=== PATIENT | male | born 1965 | race Caucasian/White ===

== ENCOUNTER 2018-03-01 04:12 | Emergency (ER) | payer MEDICAID ==
[~2018-03-01] VITALS: Ht 172.7 cm; Wt 108.0 kg
--- NOTE | 2018-03-01 04:30 | NUR ---
Patient to ER bed 8 to gown for evaluation. Side rails up.
[2018-03-01 04:35] VITALS: BP_SYST 136
--- NOTE | 2018-03-01 04:35 | NUR ---
Pt complains of right leg swelling since Saturday night. Per pt, he might have gotten a bug bite but is unsure. Noted erythema and edema, tender to touch. Pt denies fever, N/V. No other injuries/complaints per patient or noted.
--- NOTE | 2018-03-01 04:39 | NUR ---
ER Dr. Calhoun at bedside examining patient.
[2018-03-01] MEDS ORDERED: SULFAMETHOXAZOLE/TRIMETHOPR DS 1 TABLET PO ONE (04:45)
[2018-03-01 05:00] VITALS: BP_SYST 136
--- NOTE | 2018-03-01 05:00 | NUR ---
Patient given written and verbal discharge instructions and verbalizes understanding. ER MD discussed with patient the results and treatment provided. Patient in stable condition. ID arm band removed. Rx of Motrin and Bactrim given. Patient educated on pain management and to follow up with PMD. Pain Scale 0 Opportunity for questions provided and answered. Medication side effect fact sheet provided.
== END 2018-03-01 05:00 | disposition home or self-care (01) ==
LOC: SED 04:12
DX: S80.861A Insect bite (nonvenomous), right lower leg, initial encounter (principal); L03.115 Cellulitis of right lower limb; R03.0 Elevated blood-pressure reading, without diagnosis of hypertension; W57.XXXA Bitten or stung by nonvenomous insect and other nonvenomous arthropods, initial encounter; Y93.89 Activity, other specified; Y92.89 Other specified places as the place of occurrence of the external cause; Y99.8 Other external cause status
CPT/HCPCS: 99282

== ENCOUNTER 2020-02-16 06:24 | Emergency (ER) | payer MEDICAID, OTHER ==
[~2020-02-16] VITALS: Ht 172.7 cm; Wt 104.3 kg
[2020-02-16 06:35] VITALS: BP_SYST 122
--- NOTE | 2020-02-16 06:35 | NUR ---
Patient triaged and placed in waiting room. VSS and patient appears in no acute distress at this time. awaiting for available bed, and MD notified of need for MSE.
[2020-02-16 08:19] VITALS: BP_SYST 122
== END 2020-02-16 08:19 | disposition left against medical advice (07) ==
LOC: SED 06:24
DX: M79.89 Other specified soft tissue disorders (principal); Z53.21 Procedure and treatment not carried out due to patient leaving prior to being seen by health care provider